=== PATIENT | female | born 1945 | race Caucasian/White ===

== ENCOUNTER → 2016-08-14 | Outpatient (CLI) | payer MEDICARE ==
--- NOTE | 2016-08-15 08:14 | XR ---
EXAM TYPE: LUMBAR SPINE X RAY SERIES COMPARISON: NONE HISTORY: Chronic lower back pain TECHNIQUE: 4 views are submitted. FINDINGS: Alignment is anatomic. The pedicles are intact. The transverse processes are intact. There is diffu se osteopenia. Postsurgical change in the pelvis. There is severe degenerative disc disease and grade 1 spondylolisthesis L5 on S1 with bilateral spond ylolysis. Mild hypertrophic changes are seen anteriorly at multiple levels. IMPRESSION: 1. Severe degenerative disc disease L5-S1 with grade 1 anterolisthesis and bilateral spondylolysis.
== END | disposition home or self-care (01) ==
LOC: RADXRYALE 10:37
PROVIDERS: ATTEND Family Medicine
DX: M51.37 Other intervertebral disc degeneration, lumbosacral region (principal)
CPT/HCPCS: 72110